=== PATIENT | female | born 1990 | race Caucasian/White ===

== ENCOUNTER 2017-09-03 22:26 | Emergency (ER) | payer MEDICAID ==
[~2017-09-03] VITALS: Ht 165.1 cm; Wt 47.6 kg
--- NOTE | 2017-09-03 23:05 | NUR ---
PATIENT STATES ITCHING IS "BETTER NOW." NO DISTRESS NOTED
[2017-09-03 23:18] VITALS: BP 100/68
--- NOTE | 2017-09-03 23:19 | NUR ---
Patient discharged to home in stable conditon WITH TAKING PATIENT HOME. Written and verbal after care instructions given. Patient verbalizes understanding of instructions.
== END 2017-09-03 23:21 | disposition home or self-care (01) ==
LOC: ER 22:27
DX: L50.9 Urticaria, unspecified (principal)
CPT/HCPCS: A4663; J1200; J7512